=== PATIENT | male | born 1990 | race Caucasian/White ===

== ENCOUNTER 2020-10-20 00:24 | Emergency (ER) | payer OTHER ==
[2020-10-20 01:51] LABS: HEMOGLOBIN 15.6 gm/dl (14.0-17.5); RED BLOOD COUNT 5.23 M/UL (4.20-5.50); WHITE BLOOD COUNT 14.7 K/UL (4.5-11.0)
[2020-10-20 02:14] LABS: BUN/CREATININE RATIO 14 (0-10)
[2020-10-22 06:13] LABS: RPR Non Reactive (Non Reactive)
== END 2020-10-20 05:24 | disposition home or self-care (01) ==
LOC: ER1 00:24
PROVIDERS: Emergency Medicine
DX: R56.9 Unspecified convulsions (principal); A64 Unspecified sexually transmitted disease; Z20.822 Contact with and (suspected) exposure to COVID-19; F17.200 Nicotine dependence, unspecified, uncomplicated
CPT/HCPCS: 0240U; 70450; 71045; 80053; 80307; 81001; 82550; 82553; 83605; 83690; 84484; 85025; 86592; 93005; 96372; 99285